=== PATIENT | male | born 1980 | race Hispanic/Latino ===

== ENCOUNTER 2021-04-06 12:39 | Emergency (ER) | payer OTHER ==
[~2021-04-06] VITALS: Ht 157.5 cm; Wt 77.1 kg
[2021-04-06 12:41] VITALS: BP 128/72
[2021-04-06 14:11] LABS: APPEARANCE,URINE Clear (CLEAR); BILIRUBIN,URINE Negative (NEGATIVE); COLOR,URINE Yellow (YELLOW); GLUCOSE, URINE (UA) Negative (NEGATIVE); KETONES,URINE Negative (NEGATIVE); LEUKOCYTE ESTERASE ,URINE Negative (NEGATIVE); NITRATE,URINE Negative (NEGATIVE); OCCULT BLOOD,URINE Negative (NEGATIVE); PROTEIN,URINE POS 1+ mg/dL (NEGATIVE); UROBILINOGEN,URINE 0.2 mg/dL (0.2-1.0)
[2021-04-06 14:20] LABS: BACTERIA,URINE Rare /HPF (None Seen); MUCUS,URINE Few LPF (None Seen); SQUAMOUS EPITHELIAL CELL,UR Few /HPF (0-2); WBC,URINE 0-1 /HPF (0-1)
[2021-04-06] MEDS ORDERED: CYCLOBENZAPRINE HCL 10 MG TABLET PO ONE (15:00)
[2021-04-06] MEDS ORDERED: KETOROLAC 60 MG VIAL (30MG/ML) IM ONE (15:00)
[2021-04-06] MEDS ORDERED: NAPR-1180 PO (15:14)
[2021-04-06] MEDS ORDERED: CYCL10 PO (15:14)
== END 2021-04-06 15:38 | disposition home or self-care (01) ==
LOC: EDH 12:39
DX: S39.011A Strain of muscle, fascia and tendon of abdomen, initial encounter (principal); Z79.1 Long term (current) use of non-steroidal anti-inflammatories (NSAID); X58.XXXA Exposure to other specified factors, initial encounter; Y93.89 Activity, other specified; Y92.89 Other specified places as the place of occurrence of the external cause; Y99.8 Other external cause status
CPT/HCPCS: 81001; 96372; 99283; J1885